=== PATIENT | female | born 1965 | race Hispanic/Latino ===

== ENCOUNTER 2018-06-12 14:05 | Emergency (ER) | payer MEDICAID ==
[2018-06-12 14:46] VITALS: BMI 52.2
[2018-06-12 14:50] VITALS: BP 117/86; PULSE 98; RESP 18; TEMP 97.5; O2SAT 96
[2018-06-12] MEDS ORDERED: Lidocaine 5% Patch TD ONE (14:51)
--- NOTE | 2018-06-12 15:49 | ED PDOC ---
Arrival/HPI - General Chief Complaint: Back Pain Time Seen by Provider: 06/12/18 14:08 Historian: Patient - History of Present Illness Narrative History of Present Illness (Text): 06/12/18 15:45 52 year old F with pmh of hypertension presents with chief complaint of back pain x3days. Patient notes b/l feet and leg swelling recently. Patient recalls taking tylenol and celebrex which failed to alleviate any pain. Patient denies any fevers, chills, headache, dizziness, chest pain, shortness of breath, dyspnea on exertion, cough, abdominal pain, nausea, vomiting, diarrhea, neck pain, or any other complaint. Time/Duration: < week Symptom Onset: Sudden Symptom Course: Unchanged Activities at Onset: Light Context: Home Past Medical History - Provider Review Nursing Documentation Reviewed: Yes - Reproductive Menopause: Yes - Cardiac Hx Cardiac Disorders: Yes Hx Hypertension: Yes - Psychiatric Hx Depression: No Hx Emotional Abuse: No Hx Physical Abuse: No Hx Substance Use: No - Suicidal Assessment Feels Threatened In Home Enviroment: No Family/Social History - Physician Review Nursing Documentation Reviewed: Yes Family/Social History: Unknown Family HX Smoking Status: Heavy Smoker > 10 Cigarettes Daily Hx Alcohol Use: Yes (socially) Hx Substance Use: No Hx Substance Use Treatment: No Allergies/Home Meds Allergies/Adverse Reactions: Allergies Penicillins Allergy (Verified 06/12/18 14:50) ANAPHYLAXIS Home Medications: Home Meds Medication Instructions Recorded Confirmed Celecoxib [CeleBREX] 100 mg PO DAILY 06/12/18 06/12/18 Lisinopril [Zestril] 10 mg PO DAILY 06/12/18 06/12/18 Review of Systems - Physician Review All systems were reviewed & negative as marked: Yes - Review of Systems Constitutional: absent: Fatigue, Fevers ENT: absent: Sore Throat, Rhinorrhea Respiratory: absent: SOB, Cough, Wheezing Cardiovascular: absent: Chest Pain, Palpitations Gastrointestinal: absent: Abdominal Pain, Diarrhea, Nausea, Vomiting Genitourinary Female: absent: Dysuria Musculoskeletal: Back Pain Skin: absent: Rash, Cellulitis Neurological: absent: Headache, Dizziness Physical Exam Vital Signs Reviewed: Yes Vital Signs Temp Pulse Resp BP Pulse Ox 06/12/18 14:46 97.5 F L 98 H 18 117/86 96 Temperature: Afebrile Blood Pressure: Normal Pulse: Tachycardic Respiratory Rate: Normal Appearance: Positive for: Well-Appearing, Non-Toxic, Comfortable, Other (morbidly obese) Pain Distress: Mild Mental Status: Positive for: Alert and Oriented X 3 - Systems Exam Head: Present: Atraumatic, Normocephalic Pupils: Present: PERRL Extroacular Muscles: Present: EOMI Conjunctiva: Present: Normal Mouth: Present: Moist Mucous Membranes Neck: Present: Normal Range of Motion Respiratory/Chest: Present: Clear to Auscultation, Good Air Exchange. No: Respiratory Distress, Accessory Muscle Use Cardiovascular: Present: Regular Rate and Rhythm, Normal S1, S2. No: Murmurs Abdomen: No: Tenderness, Distention, Peritoneal Signs Back: Present: Other (tenderness to palpation to left gluteal region). No: Midline Tenderness, Paraspinal Tenderness, Pain with Leg Raise (positive straight left leg raise) Upper Extremity: Present: Normal Inspection. No: Cyanosis, Edema Lower Extremity: Present: Normal Inspection. No: Edema Neurological: Present: GCS=15, CN II-XII Intact, Speech Normal Skin: Present: Warm, Dry, Normal Color. No: Rashes Psychiatric: Present: Alert, Oriented x 3, Normal Insight, Normal Concentration Medical Decision Making ED Course and Treatment: 06/12/18 15:49 Impression: 52 year old F presents with chief complaint of back pain for the past 3 days Plan: -- Valium -- Toradol -- Lidoderm -- Reassess and disposition Progress Notes: 06/12/18 16:40 Reevaluated patient who says she feels better and advised her to follow up pain management. She demonstrates understanding and will follow up. Opportunity for questions given and answered. Scripts provided. She is stable for discharge. - Medication Orders Current Medication Orders: Discontinued Medications Diazepam (Valium) 5 mg PO ONCE ONE; Protocol Stop: 06/12/18 14:52 Last Admin: 06/12/18 15:22 Dose: 5 mg Ketorolac Tromethamine (Toradol) 60 mg IM STAT STA Stop: 06/12/18 14:52 Last Admin: 06/12/18 15:22 Dose: 60 mg MAR Pain Assessment Document 06/12/18 15:22 SS (Rec: 06/12/18 15:22 SS [id number]) Pain Reassessment Is this a pain reassessment? No Sleep Is patient sleeping during reassessment? No Presence of Pain Presence of Pain Yes Location Left, Right or Bilateral Left Upper or Lower Lower Pain Location Body Site Back IM Administration Charges Document 06/12/18 15:22 SS (Rec: 06/12/18 15:22 SS [id number]) Charges for Administration # of IM Administrations 1 Lidocaine (Lidoderm) 1 ea TD ONCE ONE Stop: 06/12/18 14:52 Last Admin: 06/12/18 15:22 Dose: 1 ea - Scribe Statement The provider has reviewed the documentation as recorded by the Scribe Serenity Gonzalez All medical record entries made by the Scribe were at my direction and personally dictated by me. I have reviewed the chart and agree that the record accurately reflects my personal performance of the history, physical exam, medical decision making, and the department course for this patient. I have also personally directed, reviewed, and agree with the discharge instructions and disposition. Disposition/Present on Arrival - Present on Arrival Any Indicators Present on Arrival: No History of DVT/PE: No History of Uncontrolled Diabetes: No Urinary Catheter: No History of Decub. Ulcer: No History Surgical Site Infection Following: None - Disposition Have Diagnosis and Disposition been Completed?: Yes Diagnosis: Sciatica Disposition: HOME/ ROUTINE Disposition Time: 16:40 Patient Plan: Discharge Condition: STABLE Discharge Instructions (ExitCare): Sciatica (DC) Print Language: TURKMEN Additional Instructions: All medical record entries made by the Scribe were at my direction and personally dictated by me. I have reviewed the chart and agree that the record accurately reflects my personal performance of the history, physical exam, medical decision making, and the department course for this patient. I have also personally directed, reviewed, and agree with the discharge instructions and disposition. Please follow up with your PCP You may try to schedule an appointment with a supervisor painting shipyard listed in the discharge paperwork Prescriptions: Cyclobenzaprine [Cyclobenzaprine HCl] 10 mg PO Q6H #10 tab Naproxen 500 mg PO BID #12 tablet Referrals: Letty Tijerina MD [Medical Doctor] - Follow up with primary Forms: [facility] (Burkinan), WORK NOTE
[2018-06-12] MEDS ORDERED: Oxycodone/Acetaminophen 5/325 mg Tab PO STA (16:33)
== END 2018-06-12 22:23 | disposition home or self-care (01) ==
LOC: ED 14:05
DX: M54.30 Sciatica, unspecified side (principal); F17.210 Nicotine dependence, cigarettes, uncomplicated; I10 Essential (primary) hypertension
CPT/HCPCS: 96372; 99283; J1885